=== PATIENT | male | born 1955 | race Caucasian/White ===

== ENCOUNTER 2016-05-09 06:55 | Emergency (ER) | payer OTHER ==
[~2016-05-09] VITALS: Ht 172.7 cm; Wt 113.6 kg
[~2016-05-09 06:55] MED LIST: INSU100V10 SC; METF-488 PO; Norco 10/325 PO; REGULAR INSULIN SC; SULF1TAB7 PO; ZES20 PO
[2016-05-09 06:56] VITALS: BP 159/88; PULSE 89; RESP 18; O2SAT 100
--- NOTE | 2016-05-09 07:19 | ED.REPORT ---
HPI-Extremity Problem Lower Date of Service May 09, 2016 ED Provider: Edgar Leal MD Patient is a 60 year old male who presents to the ED complaining of R knee pain s/p slipping while shoveling snow and landing on his knee. Associated symptoms include R knee swelling and tenderness. He denies trouble walking, hitting his head, or any other symptoms. He reports that he is up to date on his tetanus. Nursing Notes Stated Complaint: RT KNEE Chief Complaint: General Complaint Nursing Notes Reviewed: Yes Allergies: Coded Allergies: No Known Drug Allergies (Verified Allergy, Unknown, 03/21/12) Scheduled ([Regular Insulin]) SC ACHS ([[place] 10]) 1 TAB PO TIDP INSULIN GLARGINE-Expunged Drug, Do Not Renew! (Lantus-Expunged Drug, Do Not Renew!) 100 Unit/1 Ml Vial 20 U SC HS Lisinopril-Expunged Drug, Do Not Renew! (Lisinopril-Expunged Drug, Do Not Renew! ) 20 Mg Tablet 20 MG PO DAILY Metformin-Expunged Drug, Do Not Renew! (Metformin-Expunged Drug, Do Not Renew!) 1,000 Mg Tab.er.24 1,000 MG PO BID Sulfamethoxazole/Trimethoprim (Bactrim DS) 1 Each Tablet 1 TAB PO BID Finish all medication. Do not skip. General Time Seen by MD: 07:01 Chief Complaint Knee injury right Hx Obtained From: Patient Arrived By: Walk-in Onset Occurred: Just prior to arrival Past Medical History Past Medical History Reports: Diabetes mellitus, Hypertension Past Surgical History R foot surgery Reports: Appendectomy Reports: Back/neck surgery Smoking History Unknown if Ever Smoker Ambulatory Status Independent Review of Systems Musculoskeletal: Reports: Joint pain (R knee pain), Joint swelling (R knee) Neurologic: Denies: Change LOC, Headache, Problem walking Complete sys rev & neg: except as marked. Physical Exam Initial Vital Signs Vital Signs (First) Date Time Temp Pulse Resp B/P Pulse Ox O2 Delivery O2 Flow Rate FiO2 05/09/16 06:56 36.2 89 18 159/88 100 Room Air Initial VS: Reviewed General/Constitutional: Well-developed, Well-nourished Head / Eyes: Atraumatic, Normocephalic Respiratory: No respiratory distress Skin: Warm, Dry Neurologic: Alert, Oriented, Nonfocal Psychiatric: Mood/affect normal, Behavior normal, Normal thought content Right Knee: Positive: Tenderness present... 2, 1 cm abraisions over the R knee Ankle / Foot: Inspection NL, Neurologic intact, Vascular intact Interpretation & Diagnostics X-Ray Interpretation Xray Interpretation: IMPRESSION: No acute fracture. No osseous lesion. If symptoms and/or clinical suspicion for pathology persist, further assessment with repeat, or advanced imaging (e.g., CT, MRI, or bone scan) may be helpful for further assessment. Dictated by: Stefan Welch M.D. on 05/09/2016 at 7:58 Approved by: Stefan Welch M.D. on 05/09/2016 at 7:58 Study Performed: R knee, 3 views X-Ray Ordered: Knee right Interpretation / Wet Read by: Interpret - Radiologist Re-Eval/Medical Decision Med Decision/Clinical Course Right knee pain status post ground-level fall. Ambulatory. X-ray no fracture. There were some abrasions which were dressed. He is up-to-date on his tetanus. Return precautions given. Follow up PMD. Re-Evaluation/Progress : Time of Eval: 08:33 Re-Evaluation/Progress Note: Rechecked patient. Discussed xray results and plan for discharge. Patient understands and agrees with plan. All questions addressed at this time. Counseled Regarding: Diagnosis, Lab results, Need for follow-up, When/why to return to ED Discharge & Departure Impression: Primary Impression: Abrasion, right knee, initial encounter Disposition: Home Discharge Condition All VS Reviewed: Yes Condition: Stable Patient Instructions: Abrasion (ED) Additional Instructions: Thank you for entrusting us with you care. Your x-ray results are reassuring. Rest your leg with elevation and ice as needed. You may also use a compression wrap as needed. Follow up with your primary care physician as needed. Referrals: Clifford Kaur MD (PCP) Scribe Attestation Portions of this note were transcribed by Justin Larson. I, Dr. Leal personally performed the history, physical exam and medical decision-making; I reviewed and confirmed the accuracy of the information in the transcribed note. Signed by: Justin Larson 05/09/16, 5999 copies to: Clifford Kaur MD, Ben M MD May 09, 2016 07:18 JUSTIN LARSON May 09, 2016 07:24
--- NOTE | 2016-05-09 08:04 | DRSVH ---
PROCEDURE: X-RAY RIGHT KNEE, THREE VIEWS ([id number]) INDICATIONS: trauma TECHNIQUE: 3 views of the knee were acquired. COMPARISON: None. FINDINGS: Bones: No fractures or dislocations. No suspicious bony lesions. Moderate tricompartmental periart icular osteophyte formation. Soft tissues: No joint effusion. No suspicious soft tissue calcifications. IMPRESSION: No acute fracture. No osseous lesion. If symptoms and/or clinical suspicion for patholog y persist, further assessment with repeat, or advanced imaging (e.g., CT, MRI, or bone scan) may be h elpful for further assessment. Dictated by: Stefan Welch M.D. on 05/09/2016 at 7:58 Approved by: Stefan Welch M.D. on 05/09/2016 at 7:58
== END 2016-05-09 08:39 | disposition home or self-care (01) ==
LOC: SED 06:55
DX: S80.211A Abrasion, right knee, initial encounter (principal); W01.0XXA Fall on same level from slipping, tripping and stumbling without subsequent striking against object, initial encounter; Y93.29 Activity, other involving ice and snow; Y92.9 Unspecified place or not applicable; Y99.8 Other external cause status; E11.9 Type 2 diabetes mellitus without complications; I10 Essential (primary) hypertension; Z79.4 Long term (current) use of insulin; Z79.84 Long term (current) use of oral hypoglycemic drugs